=== PATIENT | female | born 1995 | race Caucasian/White ===

== ENCOUNTER 2018-07-27 18:43 | Emergency (ER) | payer OTHER ==
[~2018-07-27] VITALS: Ht 154.9 cm; Wt 91.7 kg
[~2018-07-27 18:43] MED LIST: CEPALOZ8 PO; COLA100C5 PO; FERR325T3 PO; IBUP200C33 PO; LOVE1INJ SC; OXYC1TAB23 PO; PERC5TAB12 PO; PRENTAB9 PO; SIME80TA PO; VITA100T59 PO
[2018-07-27 20:04] LABS: BASO % 0.4 % (0.0-1.0); EOS # 0.1 10^3/uL (0.0-0.50); EOS % 1.2 % (0.0-3.0); HEMOGLOBIN 9.9 g/dl (12.0-15.5); LYMPH # 1.6 10^3/uL (1.5-6.5); LYMPH % 15.9 % (24.0-44.0); MEAN CORPUSCULAR HEMOGLOBIN 31.6 pg (27.0-33.0); MEAN CORPUSCULAR VOLUME 95.8 fl (80.0-96.0); MONO # 0.9 10^3/uL (0.0-0.8); MONO % 8.4 % (0.0-5.0); NEUTROPHILS # 7.5 10^3/uL (1.8-7.7); NEUTROPHILS % 72.9 % (36.0-66.0); PLATELET COUNT, AUTOMATED 588 10^3/uL (150-450); RED BLOOD COUNT 3.13 10^6/uL (4.00-5.40); WHITE BLOOD COUNT 10.3 10^3/uL (4.0-10.0)
[2018-07-27 20:28] LABS: BLOOD UREA NITROGEN 6 MG/DL (7-18); CALCIUM LEVEL 8.1 MG/DL (8.5-10.1); CARBON DIOXIDE LEVEL 27 MEQ/L (21-32); CHLORIDE LEVEL 108 MEQ/L (98-107); CREATININE FOR GFR 0.64 MG/DL (0.55-1.30); GLOMERULAR FILTRATION RATE > 60.0 (>60); GLUCOSE, FASTING 80 MG/DL (70-100); POTASSIUM SERUM 4.2 MEQ/L (3.5-5.1); SODIUM LEVEL 141 MEQ/L (136-145)
--- NOTE | 2018-07-27 21:25 | REPVR ---
EXAM: CT Abdomen and Pelvis Without Contrast EXAM DATE/TIME: 07/27/2018 8:06 PM CLINICAL HISTORY: 23 years old, female; Abdominal pain; Periumbilical; Prior surgery; Surgery date: <1 month; Surgery type: w/ emergent hystero; Additional info: Rlq pain/post op TECHNIQUE: Imaging protocol: Axial computed tomography images of the abdomen and pelvis without contrast. Coronal and sagittal reformatted images were created and reviewed. Radiation optimization: All CT scans at this facility use at least one of these dose optimization techniques: automated exposure control; mA and/or kV adjustment per patient size (includes targeted exams where dose is matched to clinical indication); or iterative reconstruction. COMPARISON: CT ABD PELVIS W/O CONTRAST 07/19/2018 7:52 AM FINDINGS: Lungs: Subpleural atelectasis in the dependent portion of the right lung base. Pleural space: There small bilateral pleural effusions. ABDOMEN: Liver: The liver measures 21 cm in craniocaudal span. Gallbladder and bile ducts: Normal. No calcified stones. No ductal dilation. Pancreas: Normal. No ductal dilation. Spleen: Spleen measures 12.8 cm in craniocaudal span. Adrenals: Normal. No mass. Kidneys and ureters: 3.5 mm calculus in the lower pole of the left kidney. 2.1 cm calculus in the upper pole of the left kidney. Stomach and bowel: Normal. No obstruction. No mucosal thickening. Appendix: No evidence of appendicitis. PELVIS: Bladder: Unremarkable as visualized. Reproductive: Unremarkable as visualized. ABDOMEN and PELVIS: Intraperitoneal space: Hemorrhage/hematoma noted in the right lateral paracolic gutter extending into the pelvis a hematoma is a lower in density suggesting normal clot evolution. Bones/joints: Mild pubic diastases. No acute fracture. No dislocation. Soft tissues: Generalized body wall edema. Healed midline abdominal incision. Vasculature: Normal. No abdominal aortic aneurysm. Lymph nodes: Normal. No enlarged lymph nodes. IMPRESSION: 1. Large intra-abdominal/retroperitoneal hematoma without significant change in size compared to previous. Overall generalized decreased density of the fluid in comparison to previous consistent with normal clot lysis/resolution. 2. Anasarca with small bilateral pleural effusions. The pleural effusions have decreased since previous. 3. Subpleural atelectasis at the right lung base. There is improved ventilation of both lung bases compared to previous. 4. Hepatosplenomegaly. 5. Nonobstructing left-sided renal calculi. Electronically signed by: Elizabeth Lazaro On 07/27/2018 21:25:35 PM
--- NOTE | 2018-07-27 21:29 | IPNPDOC ---
Text Note Date of Service The patient was seen on 07/27/18. NOTE Lexii is a 23 yo s/p PLTCS and then ex lap with supracervical hystere ctomy for severe hemorrhage and hemodynamic instability secondary to a discovered posterior lower uterine segment rupture on 17Jul2018. A large retroperitoneal hematoma was also discovered which was deemed stable and did not require any intervention per vascular surgery. She recovered well after receiving massive transfusion and was ultimately discharged home on 21Jul2018. She reports today she started noticing more tingling and burning at her incision. Her dog also jumped on her which increased her pain. She also has pain above her incision. What concerned her most was that she started having some yellow drainage from her incision in the midline where the horizontal incision met the vertical incision. This soiled her steri strips. She called me and I directed her to come in for evaluation. In the ER she reports feeling sore above her incision and is worried about the drainage. She has however been doing well at home and tolerating a regular diet, having regular bowel movements, and has had no vomiting. SHe also denies experiencing any fevers. She has had minimal vaginal discharge but also feel concerned she may have a UTI. She denies any headaches, RUQ pain, or visual changes. Vitals - BP initially 160/99, repeat 155/88. Pulse 60s, afebrile (98.7.) General - sitting up, pleasant and conversant, NAD Abdomen - Soft, nondistended. Post gravid. Superior aspect of Vertical incision intact and well approximated. Steri strips removed. At juncture of v ertical and horizontal skin incisions there is a tiny opening with scant yellow discharge. There is surrounding cellulitis extending about 2 X 2 cm superiorly and tracking along the right side of the horizontal skin incision laterally. The skin edges at the juncture are apart. I probed and opened this defect. It does not probe deeply, but there is about 1X2cm abscess below the surface of the skin. Q tip probing did not track deep. Fascia intact. Wound opening flushed copiously with saline flushes and necrotic appearing tissue was debrided with graspers and scissors until healthy granulation tissue visualized. This only tracked about 1-2 cm deep. The wound was then packed with iodine impregnated kerlix packing. It was then covered with gauze and a tegaderm bandage. Extremities - Minimal edema Labs: CBC - 10.3>9.9/30.0<588 BMP - 141/4.2--108/27--6/0.64<80 UA - 1 WBC, neg leuk est, neg nitrites Rads: ABDOMEN and PELVIS: Intraperitoneal space: Hemorrhage/hematoma noted in the right lateral paracolic gutter extending into the pelvis a hematoma is a lower in density suggesting normal clot evolution. Bones/joints: Mild pubic diastases. No acute fracture. No dislocation. Soft tissues: Generalized body wall edema. Healed midline abdominal incision. Vasculature: Normal. No abdominal aortic aneurysm. Lymph nodes: Normal. No enlarged lymph nodes. IMPRESSION: 1. Large intra-abdominal/retroperitoneal hematoma without significant change in size compared to previous. Overall generalized decreased density of the fluid in comparison to previous consistent with normal clot lysis/resolution. 2. Anasarca with small bilateral pleural effusions. The pleural effusions have decreased since previous. 3. Subpleural atelectasis at the right lung base. There is improved ventilation of both lung bases compared to previous. 4. Hepatosplenomegaly. 5. Nonobstructing left-sided renal calculi. Electronically signed by: Elizabeth Lazaro On 07/27/2018 21:25:35 PM A/P: Post op cellulitis and small sub Q abscess. No evidence of fascial dehiscence. Retroperitoneal hematoma stable. Small abscess opened and drained. Necrotic tissue debrided and flushed. Wound packed with iodine impregnated gauze. Will need to change on Monday to facilitate healing by secondary intention. Will start PO abx for cellulitis. Wound care consultation placed for assistance in management of wound. She was given the phone number for wound care which she will call on Monday. Lexii already has a follow up appointment with me on Monday as well. Will change packing and gauze at that time. We again reviewed post op instructions. Encouraged aggressive PO intake for nephrolithiasis. Will also follow up on urine culture, though UA not consistent with UTI. Note made of elevated BP. She has no symptoms of pre eclampsia and labs are not consistent with it either. She has a normal Cr, platelets are not low, and she has no protein in her urine. Will again recheck blood pressure when she comes back to see me on Monday. She knows to return to care sooner should she experience fevers, worsening pain, headaches, SOB, visual changes, or any other urgent concerns. All patient questions answered. Talon Reynoso DO A-FIB/SHERYLDSVASC A-FIB History Current/History of A-Fib/PAF?: No VS,Fishbone, I+O VS, Fishbone, I+O Laboratory Tests 07/27/18 19:42 Red Blood Count 3.13 L, Mean Corpuscular Volume 95.8, Mean Corpuscular Hemoglobin 31.6, Mean Corpuscular Hemoglobin Concent 33.0, Red Cell Distribution Width 14.4, Neutrophils (%) (Auto) 72.9 H, Lymphocytes (%) (Auto) 15.9 L, Monocytes (%) (Auto) 8.4 H, Eosinophils (%) (Auto) 1.2, Basophils (%) (Auto) 0.4, Neutrophils # (Auto) 7.5, Lymphocytes # (Auto) 1.6, Monocytes # (Auto) 0.9 H, Eosinophils # (Auto) 0.1, Basophils # (Auto) 0.0, Calcium Level 8.1 L Vital Signs Date Time Temp Pulse Resp B/P (MAP) Pulse Ox O2 Delivery O2 Flow Rate FiO2 07/27/18 19:04 07/27/18 18:43 98.7 63 18 97 Room Air TALON REYNOSO DO Jul 27, 2018 21:29
[2018-07-27] MEDS ORDERED: BACT800T5 PO (21:52)
[2018-07-27 21:54] VITALS: BP 155/88
[2018-07-27] MEDS ORDERED: BACTRIM 160MG/800MG DS TAB PO ONE (22:00)
--- NOTE | 2018-07-28 07:20 | ED PDOC ---
Post-Departure Follow-Up ft samia ob and fp faed formal report of ct abd/p for fu Stephanie Goss MD Jul 28, 2018 07:20
== END 2018-07-27 22:01 | disposition home or self-care (01) ==
LOC: M ED 18:43
DX: O90.0 Disruption of cesarean delivery wound (principal); O90.81 Anemia of the puerperium; O99.345 Other mental disorders complicating the puerperium; O99.335 Smoking (tobacco) complicating the puerperium; R16.2 Hepatomegaly with splenomegaly, not elsewhere classified; N20.0 Calculus of kidney; O99.89 Other specified diseases and conditions complicating pregnancy, childbirth and the puerperium; J45.909 Unspecified asthma, uncomplicated; Z79.899 Other long term (current) drug therapy; Z88.5 Allergy status to narcotic agent

== ENCOUNTER → 2018-09-04 | Outpatient (REF) | payer OTHER ==
[~2018-09-04] MED LIST changes: +BACT800T5 PO
[2018-09-04 18:35] LABS: BASO % 0.2 % (0.0-1.0); EOS # 0.1 10^3/uL (0.0-0.50); EOS % 1.4 % (0.0-3.0); HEMATOCRIT 42.4 % (36.0-47.0); HEMOGLOBIN 14.3 g/dl (12.0-15.5); LYMPH # 2.4 10^3/uL (1.5-6.5); MEAN CORPUSCULAR HGB CONC 33.7 g/dl (32.0-36.5); MEAN CORPUSCULAR VOLUME 91.8 fl (80.0-96.0); MONO # 0.7 10^3/uL (0.0-0.8); MONO % 6.4 % (0.0-5.0); NEUTROPHILS # 6.9 10^3/uL (1.8-7.7); NEUTROPHILS % 67.7 % (36.0-66.0); PLATELET COUNT, AUTOMATED 389 10^3/uL (150-450); RED BLOOD COUNT 4.62 10^6/uL (4.00-5.40); WHITE BLOOD COUNT 10.2 10^3/uL (4.0-10.0)
[2018-09-04 18:48] LABS: INR 0.96; PROTHROMBIN TIME 12.9 SECONDS (12.1-14.4)
[2018-09-04 18:49] LABS: PARTIAL THROMBOPLASTIN TIME 31.7 SECONDS (25.4-37.6)
[2018-09-04 18:50] LABS: ALBUMIN 3.7 GM/DL (3.2-5.2); ALT/SGPT 34 U/L (12-78); BILIRUBIN,TOTAL 0.3 MG/DL (0.2-1.0); BLOOD UREA NITROGEN 9 MG/DL (7-18); CALCIUM LEVEL 9.2 MG/DL (8.5-10.1); CARBON DIOXIDE LEVEL 27 MEQ/L (21-32); CHLORIDE LEVEL 105 MEQ/L (98-107); CREATININE FOR GFR 0.57 MG/DL (0.55-1.30); GLOMERULAR FILTRATION RATE > 60.0 (>60); GLUCOSE, FASTING 89 MG/DL (70-100); POTASSIUM SERUM 4.1 MEQ/L (3.5-5.1); SODIUM LEVEL 139 MEQ/L (136-145); TOTAL PROTEIN 7.2 GM/DL (6.4-8.2)
== END ==
LOC: M LAB REF 16:39
PROVIDERS: ATTEND Surgery
DX: T81.31XD Disruption of external operation (surgical) wound, not elsewhere classified, subsequent encounter (principal)

== ENCOUNTER → 2018-09-13 | Outpatient (CLI) | payer OTHER ==
--- NOTE | 2018-09-13 17:24 | REP ---
CT ABDOMEN AND PELVIS WITHOUT IV CONTRAST: CT abdomen and pelvis performed without oral or IV contrast. Sagittal and coronal reconstruction images are performed. Visualized lung bases are clear. The liver, spleen, adrenals, pancreas are unremarkable. There is no hydronephrosis bilaterally. Punctate calcification is seen in the upper pole as well as in the lower pole left renal collecting system. There is no abdominal aortic aneurysm. I see no adenopathy. There is no free air. The appendix is normal. There appears to be a small amount of complex fluid in the inferior right paracolic gutter. No definite free fluid is seen in the pelvis. The urinary bladder is mildly distended and grossly unremarkable. There is ill-defined density in the subcutaneous fat of the anterior pelvic wall below the umbilicus. This may represent edema or cellulitis. There is a small umbilical hernia containing fat. IMPRESSION: Small umbilical hernia containing fat. Below that in the midline of the anterior wall of the pelvis, there is subcutaneous edema in the midline representing edema or superimposed inflammatory change and cellulitis. No fluid collection seen in the abdominal wall. There is a small amount of complex fluid in the right paracolic gutter. Electronically Signed by Johny Urbina MD 09/14/2018 07:20 P
== END ==
LOC: M RAD 16:29
PROVIDERS: ATTEND Obstetrics & Gynecology
DX: N39.44 Nocturnal enuresis (principal); R19.00 Intra-abdominal and pelvic swelling, mass and lump, unspecified site; K46.0 Unspecified abdominal hernia with obstruction, without gangrene; Z98.890 Other specified postprocedural states

== ENCOUNTER 2018-10-23 07:24 | Day surgery (SDC) | payer OTHER ==
[~2018-10-23] VITALS: Ht 154.9 cm; Wt 82.6 kg
[~2018-10-23 07:24] MED LIST changes: +LR 1,000 ML IV ONE; +ceFAZolin SOD 1 GM in D5W MINI-BAG PLUS 50 ML IV ONE
[2018-10-23 08:00] LABS: HEMATOCRIT 42.7 % (36.0-47.0); HEMOGLOBIN 14.8 g/dl (12.0-15.5); MEAN CORPUSCULAR HEMOGLOBIN 32.9 pg (27.0-33.0); MEAN CORPUSCULAR HGB CONC 34.7 g/dl (32.0-36.5); MEAN CORPUSCULAR VOLUME 94.9 fl (80.0-96.0); PLATELET COUNT, AUTOMATED 326 10^3/uL (150-450); WHITE BLOOD COUNT 8.2 10^3/uL (4.0-10.0)
[2018-10-23 08:21] LABS: HCG, SERUM QUALITATIVE NEGATIVE (NEGATIVE)
[2018-10-23] MEDS ORDERED: ESTROGENS VAGINAL CREAM 30GM As Ordered ONE (08:59)
[2018-10-23] MEDS ORDERED: LIDOCAINE 1% SDV INJ 30 ML VIAL As Ordered ONE (08:59)
[2018-10-23] MEDS ORDERED: BUPIVACAINE HCL 0.25% 30 ML VIAL As Ordered ONE (08:59)
[2018-10-23] MEDS ORDERED: dexameTHASONE 4 MG/ML 1ML VIAL (J1100) As Ordered ONE (09:38)
[2018-10-23] MEDS ORDERED: ACETAMINOPHEN 1000MG 100ML IV BTL (OFIRMEV) (J0131 PER 10MG) As Ordered ONE (09:38)
[2018-10-23] MEDS ORDERED: LIDOCAINE 2% INJ 100 MG/5 ML SDV (FOR ANES.) As Ordered ONE (09:38)
[2018-10-23] MEDS ORDERED: PROPOFOL 200 MG/20 ML VIAL As Ordered ONE ×3 (09:38→10:58)
[2018-10-23] MEDS ORDERED: ONDANSETRON 4MG/2ML VIAL (J2405) As Ordered ONE ×3 (09:38→12:54)
[2018-10-23] MEDS ORDERED: fentaNYL 250 MCG/5 ML INJECTION (J3010) As Ordered ONE (09:38)
[2018-10-23] MEDS ORDERED: MIDAZOLAM INJ 2 MG/2 ML VIAL (J2250) As Ordered ONE (09:38)
[2018-10-23] MEDS ORDERED: ePHEDrine SULFATE 25 MG/5 ML(5MG/ML) SYRINGE As Ordered ONE (10:02)
[2018-10-23] MEDS: fentaNYL 100 MCG/2 ML INJECTION (J3010) IV PRN ×4 (11:15→11:35)
[2018-10-23] MEDS ORDERED: fentaNYL 100 MCG/2 ML INJECTION (J3010) As Ordered ONE (11:20)
[2018-10-23] MEDS ORDERED: METOCLOPRAMIDE INJ 10MG/2ML VIAL (J2765) As Ordered ONE (11:20)
[2018-10-23] MEDS ORDERED: METOCLOPRAMIDE INJ 10MG/2ML VIAL (J2765) IV PRN (11:30)
[2018-10-23] MEDS ORDERED: LR 1,000 ML IV SCH (11:30)
[2018-10-23] MEDS ORDERED: PERCOCET 5MG/325MG TAB PO PRN ×2 (11:30→11:45)
[2018-10-23] MEDS ORDERED: ONDANSETRON 4MG/2ML VIAL (J2405) IV PRN (11:30)
[2018-10-23 13:04] VITALS: BP 116/57
--- NOTE | 2018-10-24 14:49 | RO ---
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 PROCEDURE: Bilateral labiaplasty. SURGEON: Talon Reynoso DO EYE GLASS FRAME POLISHER: None. ANESTHESIA: General. FLUIDS: 1400 mL lactated Ringer (LR). URINE OUTPUT: 10 mL via straight cath. ESTIMATED BLOOD LOSS (EBL): 50 mL. OPERATIVE FINDINGS: Significantly enlarged labia minora bilaterally measuring greater than 6 cm on each side. ANTIBIOTICS: Ancef 1 gram. COMPLICATIONS: None. DETAILED PROCEDURE DESCRIPTION: The risks, benefits, indications, and alternatives of the procedure were reviewed with the patient, and informed consent was obtained. The patient was taken to the operating room, where general anesthesia was obtained without difficulty. The patient was then placed in the lithotomy position using Oli stirrups. An examination under anesthesia was then performed and was significant for the above-noted labial hypertrophic findings. The patient was then prepped and draped in the usual sterile fashion. A surgical time-out was then performed, and the patient's identity and planned procedure were verified with the operative team. The patient's bladder was first drained using in-and-out catheter. The bilateral labia minora were then identified and inspected. The decision was made to perform a wedge resection and then an anastomosis of resected labial tissue on each side. The bilateral labia minora were then marked, and the surgical incision tracks were outlined with a pen. After marking, Marcaine was then injected at the base and at the superior apex of the labia minora on both sides. The left labia minora was isolated first. A V-shaped wedge resection of labial tissue along the previously-marked line was then made with the scalpel and finished with Metzenbaum scissors. The tissue was resected without difficulty and discarded off the operative field. Hemostasis was achieved with cautery and sutures. The edges of the labia from the wedge resection were then brought together, and the labia were sewn together with multiple interrupted sutures of 4-0 Vicryl and 3-0 Vicryl that were nonlocking. Excellent hemostasis was achieved, and excellent cosmetic result was obtained. The patient's right labia was then identified, and the process of V-shaped wedge resection and anastomosis of the resected labia of the raw edges was repeated. Inspection of both labia revealed excellent cosmesis, excellent reduction of labial size, and excellent hemostasis. Premarin cream was then applied to the operative edges and the suture sites of the labia bilaterally. All instruments were then confirmed to have been removed from the operative field. At the completion of the case, sponge, instrument, and needle counts were correct times two. The patient tolerated the procedure well and was taken to the postanesthesia care unit (PACU) in stable condition. KRYSTAL
== END 2018-10-23 13:20 | disposition home or self-care (01) ==
LOC: M SDC 07:24
PROVIDERS: ATTEND Obstetrics & Gynecology
DX: N90.60 Unspecified hypertrophy of vulva (principal); D64.9 Anemia, unspecified; J45.909 Unspecified asthma, uncomplicated; E66.9 Obesity, unspecified; F17.210 Nicotine dependence, cigarettes, uncomplicated; Z91.030 Bee allergy status; Z91.018 Allergy to other foods; Z88.5 Allergy status to narcotic agent
CPT/HCPCS: 36415; 56620; 84703; 85027; 86850; 86900; 86901; 88302; J0131; J0690; J1100; J2250; J2405; J2765; J3010

== ENCOUNTER 2018-10-29 21:58 | Emergency (ER) | payer OTHER ==
[~2018-10-29] VITALS: Ht 154.9 cm; Wt 85.9 kg
[~2018-10-29 21:58] MED LIST changes: -LR 1,000 ML IV ONE; -ceFAZolin SOD 1 GM in D5W MINI-BAG PLUS 50 ML IV ONE
[2018-10-30 03:24] VITALS: BP 133/72
== END 2018-10-30 03:35 | disposition left against medical advice (07) ==
LOC: M ED 21:58
DX: Z53.29 Procedure and treatment not carried out because of patient's decision for other reasons (principal)

== ENCOUNTER 2019-02-26 09:31 | Day surgery (SDC) | payer OTHER ==
[~2019-02-26] VITALS: Ht 154.9 cm; Wt 82.6 kg
[~2019-02-26 09:31] MED LIST changes: +ACETAMINOPHEN 1000MG 100ML IV BTL (OFIRMEV) (J0131 PER 10MG) As Ordered ONE; +LIDOCAINE 1% MDV 20ML VIAL SQ PRN; +LIDOCAINE 2% INJ 100 MG/5 ML SDV (FOR ANES.) As Ordered ONE; +LR 1,000 ML IV ONE; +MIDAZOLAM INJ 2 MG/2 ML VIAL (J2250) As Ordered ONE; +ONDANSETRON 4MG/2ML VIAL (J2405) As Ordered ONE; +PROPOFOL 200 MG/20 ML VIAL As Ordered ONE; +ceFAZolin SOD 2 GM in IV 1 EA IV ONE; +dexameTHASONE 4 MG/ML 1ML VIAL (J1100) As Ordered ONE; +fentaNYL 250 MCG/5 ML INJECTION (J3010) As Ordered ONE
[2019-02-26] MEDS ORDERED: SCOPOLAMINE 1MG TRANSDERMAL PATCH TOP ONE (10:15)
[2019-02-26 10:20] LABS: HEMATOCRIT 44.1 % (36.0-47.0); HEMOGLOBIN 14.7 g/dl (12.0-15.5); MEAN CORPUSCULAR HEMOGLOBIN 32.2 pg (27.0-33.0); MEAN CORPUSCULAR HGB CONC 33.3 g/dl (32.0-36.5); MEAN CORPUSCULAR VOLUME 96.7 fl (80.0-96.0); PLATELET COUNT, AUTOMATED 346 10^3/uL (150-450); RED BLOOD COUNT 4.56 10^6/uL (4.00-5.40); WHITE BLOOD COUNT 10.1 10^3/uL (4.0-10.0)
[2019-02-26] MEDS ORDERED: ESTROGENS VAGINAL CREAM 30GM As Ordered ONE (11:25)
[2019-02-26] MEDS ORDERED: LIDOCAINE 1% SDV INJ 30 ML VIAL As Ordered ONE (11:25)
[2019-02-26] MEDS ORDERED: BUPIVACAINE HCL 0.25% 30 ML VIAL As Ordered ONE (11:25)
[2019-02-26] MEDS ORDERED: PROPOFOL 200 MG/20 ML VIAL As Ordered ONE (13:10)
[2019-02-26] MEDS ORDERED: ONDANSETRON 4MG/2ML VIAL (J2405) As Ordered ONE (13:21)
[2019-02-26] MEDS ORDERED: fentaNYL 100 MCG/2 ML INJECTION (J3010) As Ordered ONE (13:26)
[2019-02-26] MEDS: fentaNYL 100 MCG/2 ML INJECTION (J3010) IV PRN ×8 (13:28→14:12)
[2019-02-26] MEDS: PERCOCET 5MG/325MG TAB PO PRN ×2 (13:41→14:40)
[2019-02-26] MEDS ORDERED: METOCLOPRAMIDE INJ 10MG/2ML VIAL (J2765) IV PRN (13:45)
[2019-02-26] MEDS ORDERED: ONDANSETRON 4MG/2ML VIAL (J2405) IV PRN (13:45)
[2019-02-26] MEDS ORDERED: LR 1,000 ML IV SCH (13:45)
[2019-02-26] MEDS ORDERED: IBUPROFEN 400 MG TAB As Ordered ONE (14:13)
[2019-02-26] MEDS ORDERED: IBUPROFEN 800 MG TAB PO ONE (14:15)
[2019-02-26 14:30] VITALS: BP 130/63
--- NOTE | 2019-02-27 16:52 | RO ---
DATE OF PROCEDURE: 02/26/2019 PREPROCEDURE DIAGNOSIS: Bilateral labia minora hypertrophy and poor cosmetic appearance from prior labioplasty. POSTPROCEDURE DIAGNOSIS: Bilateral labia minora hypertrophy and poor cosmetic appearance from prior labioplasty. OPERATIVE PROCEDURE: Bilateral labiaplasty via curvilinear excision. SURGEON: Talon Reynoso DO ROCK CRUSHER OPERATOR: None. ANESTHESIA: General. FLUIDS: 1400 mL lactated Ringers. URINE OUTPUT: 30 mL via straight catheter ESTIMATED BLOOD LOSS: 50 mL COMPLICATIONS: None. ANTIBIOTICS: 2 grams Ancef. OPERATIVE FINDINGS: Enlarged labia minora bilaterally and poor cosmetic appearance from prior labioplasty. INDICATIONS FOR THE PROCEDURE: Lexii is a 23 year old female who is well known to me. She has enlarged labia minora bilaterally and strongly desired labioplasty for quality of life improvement (labia would get stuck to clothes and interfered with intercourse) and also cosmetic appearance. She underwent her first labiaplasty in October 2018 via a wedge resection. She had wound dehiscence after the procedure which caused discomfort and poor cosmetic appearance of her labia on both sides. She strongly desired a repeat procedure to remove her remaining labial tissue. She was counseled thoroughly on all risks and benefits of the procedure. Specifically, it was discussed with her that she again could have wound breakdown causing irritation and poor cosmetic appearance. In addition, she was counseled that she may develop scar tissue at her remaining labia which could cause chronic irritation, pain, and discomfort. She was well aware of these risks along with all others and strongly desired to proceed with repeat labiaplasty. DETAILED PROCEDURE DESCRIPTION: The risks, benefits, indications and alternatives of the procedure were reviewed with the patient and informed consent was obtained. The patient was taken to the operating room where general anesthesia was then obtained without difficulty. An exam under anesthesia was then performed which revealed enlarged labia minora bilaterally measuring greater than 5.5 cm from the midline and a prior history of wedge resection of the labia with poor cosmetic appearance from post op wound breakdown. The patient's bladder was drained first with a straight catheter. The labia minora were then inspected. The right labia minora was then isolated and identified. Lidocaine was then injected along the labia at the planned excision site. A surgical pen was used to apoorva the incision site of the redundant tissue. Using a scalpel, a curvilinear incision was made on both sides of the right labia minora to excise the redundant tissue from an anterior and posterior direction. The raw edges were then oversewn with multiple interrupted sutures of #4-0 Vicryl. There was excellent hemostasis. Attention was then turned to the patient's left labia minora which was isolated and identified. An identical procedure was then performed on that side via a curvilinear incision on both sides of the left labia which resulted in excision of the redundant labial tissue. The raw edges were oversewn with multiple interrupted sutures of #4-0 Vicryl. Great care was done to avoid the clitoral tracey and clitoris. After the raw edges on both sides were reapproximated, hemostasis was observed and ensured. Premarin cream was then applied to the labial tissue operative sites to promote tissue healing. Again, inspection revealed hemostasis. At the completion of the case the sponge, instrument and needle counts were correct times three. All instruments and material was removed from the field. The patient tolerated the procedure well. She was awakened from anesthesia and taken to the post anesthesia care unit (PACU) in stable condition. KRYSTAL
== END 2019-02-26 15:13 | disposition home or self-care (01) ==
LOC: M SDC 09:31
PROVIDERS: ATTEND Obstetrics & Gynecology
DX: N90.69 Other specified hypertrophy of vulva (principal); F17.218 Nicotine dependence, cigarettes, with other nicotine-induced disorders; J45.909 Unspecified asthma, uncomplicated; Z91.030 Bee allergy status; Z88.5 Allergy status to narcotic agent; Z88.8 Allergy status to other drugs, medicaments and biological substances
CPT/HCPCS: 15839; 36415; 85027; 88302; J0131; J0690; J1100; J2250; J2405; J3010

== ENCOUNTER → 2023-09-13 | Outpatient (REF) | payer OTHER ==
[~2023-09-13] MED LIST changes: -ACETAMINOPHEN 1000MG 100ML IV BTL (OFIRMEV) (J0131 PER 10MG) As Ordered ONE; +BENZ1LOZ9 PO; -CEPALOZ8 PO; -LIDOCAINE 1% MDV 20ML VIAL SQ PRN; -LIDOCAINE 2% INJ 100 MG/5 ML SDV (FOR ANES.) As Ordered ONE; -LR 1,000 ML IV ONE; -MIDAZOLAM INJ 2 MG/2 ML VIAL (J2250) As Ordered ONE; -ONDANSETRON 4MG/2ML VIAL (J2405) As Ordered ONE; -PROPOFOL 200 MG/20 ML VIAL As Ordered ONE; -ceFAZolin SOD 2 GM in IV 1 EA IV ONE; -dexameTHASONE 4 MG/ML 1ML VIAL (J1100) As Ordered ONE; -fentaNYL 250 MCG/5 ML INJECTION (J3010) As Ordered ONE
== END ==
LOC: M LAB REF 16:14
PROVIDERS: ATTEND Nurse Practitioner Family
DX: J02.9 Acute pharyngitis, unspecified (principal)

== ENCOUNTER 2024-11-05 20:49 | Emergency (ER) | payer OTHER ==
[~2024-11-05] VITALS: Ht 154.9 cm; Wt 90.8 kg
[2024-11-06] MEDS: LIDOCAINE 2% MDV 20 ML VIAL SC ONE (00:40)
[2024-11-06] MEDS ORDERED: CLIN-250 PO (01:16)
[2024-11-06] MEDS ORDERED: HYDR-3713 PO (01:16)
[2024-11-06 01:24] VITALS: BP 129/74; TEMP 98.7; O2SAT 97
[2024-11-06] MEDS ORDERED: LIDO30CR18 TOP (01:24)
== END 2024-11-06 01:35 | disposition home or self-care (01) ==
LOC: M ED 20:49
DX: N90.7 Vulvar cyst (principal); F17.200 Nicotine dependence, unspecified, uncomplicated; Z79.1 Long term (current) use of non-steroidal anti-inflammatories (NSAID); Z79.2 Long term (current) use of antibiotics; Z79.899 Other long term (current) drug therapy; Z91.013 Allergy to seafood; Z91.030 Bee allergy status; Z88.5 Allergy status to narcotic agent

== ENCOUNTER 2025-02-16 14:38 | Emergency (ER) | payer OTHER ==
[~2025-02-16] VITALS: Ht 154.9 cm; Wt 90.4 kg
[~2025-02-16 14:38] MED LIST changes: +CLIN-250 PO; +HYDR-3713 PO; +LIDO30CR18 TOP
[2025-02-16] MEDS ORDERED: TETANUS/DIPHTH/ACEL. PERTUSSIS 0.5 ML SYR IM.IMMUN ONE (17:00)
[2025-02-16 17:56] LABS: BASO # 0.0 10^3/uL (0.0-0.2); BASO % 0.2 % (0.0-1.0); EOS # 0.1 10^3/uL (0.0-0.5); EOS % 0.5 % (0.0-3.0); LYMPH # 2.7 10^3/uL (1.5-5.0); LYMPH % 21.6 % (24.0-44.0); MONO # 0.7 10^3/uL (0.0-0.8); MONO % 5.2 % (2.0-8.0); NEUTROPHILS # 9.1 10^3/uL (1.5-8.5); NEUTROPHILS % 72.3 % (36.0-66.0); PLATELET COUNT, AUTOMATED 380 10^3/uL (150-450)
[2025-02-16 18:30] LABS: C REACTIVE PROTEIN QUANTITATIV 0.80 MG/DL (<1.0); HCG, SERUM QUALITATIVE NEGATIVE (NEGATIVE)
[2025-02-16 18:31] LABS: KETONE, URINE AUTO RFX NEGATIVE (NEGATIVE); LEUKOCYTE ESTERASE UR AUTO RFX NEGATIVE (NEGATIVE); NITRITE, URINE AUTO RFX NEGATIVE (NEGATIVE); RBC, URINE AUTO RFX 3 /HPF (0-3); SQUAM EPITHELIAL CELL UR AURFX 0 /HPF (0-6); WBC, URINE AUTO RFX 0 /HPF (0-3)
[2025-02-16 18:32] LABS: CALCIUM LEVEL 9.4 MG/DL (8.5-10.1); CARBON DIOXIDE LEVEL 25 MMOL/L (20-31); CHLORIDE LEVEL 103 MMOL/L (98-107); CREATININE FOR GFR 0.66 MG/DL (0.55-1.30); GLOMERULAR FILTRATION RATE > 90.0 (>60); POTASSIUM SERUM 4.1 MMOL/L (3.5-5.1); SODIUM LEVEL 141 MMOL/L (136-145)
[2025-02-16] MEDS ORDERED: MORPHINE 4 MG/ML 1 ML VIAL IM ONE (20:05)
[2025-02-16] MEDS: LIDOCAINE 1% MDV 20 ML VIAL IM ONE (20:05)
[2025-02-16] MEDS: SILVER NITRATE APPLICATOR (1 = QTY 10) TOP ONE (20:10)
[2025-02-16] MEDS: MORPHINE 4 MG/ML 1 ML VIAL IV ONE (20:26)
[2025-02-16] MEDS ORDERED: BACT800T5 PO (21:04)
[2025-02-16 21:16] VITALS: BP 126/77; TEMP 98.6; O2SAT 98
== END 2025-02-16 21:18 | disposition home or self-care (01) ==
LOC: M ED 14:38
DX: N90.7 Vulvar cyst (principal); E66.9 Obesity, unspecified; D64.9 Anemia, unspecified; J45.909 Unspecified asthma, uncomplicated; Z91.013 Allergy to seafood; Z91.030 Bee allergy status; Z88.5 Allergy status to narcotic agent; Z79.1 Long term (current) use of non-steroidal anti-inflammatories (NSAID); Z79.2 Long term (current) use of antibiotics; Z79.899 Other long term (current) drug therapy